=== PATIENT | female | born 1955 ===

== ENCOUNTER 2016-09-07 21:55 | Emergency (ER) | payer OTHER ==
[2016-09-07 22:12] VITALS: BMI 28.3
[2016-09-07 22:14] VITALS: BP 130/76; PULSE 79; RESP 16; TEMP 98.3; O2SAT 98
[2016-09-07] MEDS ORDERED: TDAP Vaccine 0.5 mL Syr IM ONE (22:36)
--- NOTE | 2016-09-07 22:40 | ED PDOC ---
Arrival/HPI - General Chief Complaint: Abnormal Skin Integrity Time Seen by Provider: 09/07/16 22:35 Historian: Patient - History of Present Illness Narrative History of Present Illness (Text): 09/07/16 22:37 60-year-old female presents today with a puncture wound to the right foot yesterday. Patient states she was walking with sneakers on. Patient unsure of her left tetanus shot. Denies fevers or chills. Complaining of pain to the puncture site. Patient denies a history of diabetes. Patient states she cleaned the wound with peroxide. He denies swelling or redness. States she has pain with ambulation. No other complaints Time/Duration: Other (yesterday) Symptom Onset: Sudden Symptom Course: Unchanged Quality: Aching Severity Level: 2 Past Medical History - Provider Review Nursing Documentation Reviewed: Yes - Travel History Have you recently traveled outside [place] w/in the past 3 mons?: No - Infectious Disease Hx of Infectious Diseases: None - Tetanus Immunization Tetanus Immunization: Unknown - Psychiatric Hx Substance Use: No - Surgical History Hx Section: Yes (x2) Hx Cholecystectomy: Yes - Anesthesia Hx Anesthesia: Yes Hx Anesthesia Reactions: No Hx Malignant Hyperthermia: No Family/Social History - Physician Review Nursing Documentation Reviewed: Yes Family/Social History: Unknown Family HX Smoking Status: Never Smoked Hx Alcohol Use: No Hx Substance Use: No Allergies/Home Meds Allergies/Adverse Reactions: Allergies No Known Allergies Allergy (Verified 09/07/16 22:12) Review of Systems - Review of Systems Constitutional: absent: Fatigue, Fevers Respiratory: absent: SOB, Cough Cardiovascular: absent: Chest Pain, Palpitations Gastrointestinal: absent: Abdominal Pain, Nausea, Vomiting Musculoskeletal: Arthralgias (ffoot pain) Skin: Other (puncture wound) Physical Exam Vital Signs Reviewed: Yes Vital Signs Temp Pulse Resp BP Pulse Ox 09/07/16 22:14 98.3 F 79 16 130/76 98 Temperature: Afebrile Blood Pressure: Normal Pulse: Regular Respiratory Rate: Normal Appearance: Positive for: Well-Appearing, Non-Toxic, Comfortable Pain Distress: None Mental Status: Positive for: Alert and Oriented X 3 - Systems Exam Head: Present: Atraumatic Mouth: Present: Moist Mucous Membranes Neck: Present: Normal Range of Motion Respiratory/Chest: Present: Clear to Auscultation, Good Air Exchange. No: Respiratory Distress, Accessory Muscle Use Cardiovascular: Present: Regular Rate and Rhythm, Normal S1, S2. No: Murmurs Lower Extremity: Present: NORMAL PULSES, Normal ROM, Tenderness (right foot; there is a puncture wound noted to the plantar aspect of the right foot along the distal aspect approx over the 2nd metatarsal; no edema no erythema; no ecchymosis; no fb noted; + ttp at puncture site. ), Neurovascularly Intact, Capillary Refill < 2 s. No: CALF TENDERNESS, Swelling, Erythema, Deformity Neurological: Present: GCS=15, Speech Normal Skin: Present: Warm, Dry, Normal Color Psychiatric: Present: Alert, Oriented x 3 Medical Decision Making ED Course and Treatment: 09/07/16 23:34 60-year-old female with a puncture wound to the right foot from nail yesterday. No signs of infection at present time. Tetanus updated. Motrin by mouth Cipro by mouth Wound cleaned and irrigated well with high-pressure normal saline. Bacitracin and dressing applied. X-rays of the right foot: No foreign body no fracture. I advised the patient follow up with primary care physician/surfacing technician within the next 2 days. Advised immediate return if signs of infection develop: High fevers, increasing pain, increasing redness, increasing swelling, purulent discharge. I discussed Cipro in depth with the patient and advised the patient to avoid strenuous activity due to the possibility of tendon rupture on this medication. I discussed with the patient the importance of Cipro due to the puncture wound through the rubber sole of her sneaker. Patient verbalizes understanding of discharge instructions and need for immediate followup. all aspects of this case were discussed the attending of record. Impression: Puncture wound, foot motrin every 6 hours as needed for pain cipro; 1 tablet twice daily x 7 days keep wound clean and dry apply bacitracin twice daily follow up with the primary care physician within the next 2 days. return immediately if signs of infection develop; high fevers, increasing pain, redness, swelling, or if any other concerning symptoms develop. Disposition/Present on Arrival - Present on Arrival Any Indicators Present on Arrival: No History of DVT/PE: No History of Uncontrolled Diabetes: No Urinary Catheter: No History of Decub. Ulcer: No History Surgical Site Infection Following: None - Disposition Have Diagnosis and Disposition been Completed?: Yes Diagnosis: Puncture wound Disposition: HOME/ ROUTINE Disposition Time: 23:28 Patient Plan: Discharge Condition: GOOD Discharge Instructions (ExitCare): Puncture Wound (ED) Additional Instructions: motrin every 6 hours as needed for pain cipro; 1 tablet twice daily x 7 days keep wound clean and dry apply bacitracin twice daily follow up with the primary care physician within the next 2 days. return immediately if signs of infection develop; high fevers, increasing pain, redness, swelling, or if any other concerning symptoms develop. Prescriptions: Ciprofloxacin [Cipro] 500 mg PO BID #14 tab Ibuprofen [Motrin] 600 mg PO Q6H PRN #20 tab PRN Reason: pain/fever reduction Referrals: Ck Woodson DPM [Staff Provider] - Follow up with primary Carmina Brink DPM [Staff Provider] - Follow up with primary [facility] [Outside] - Follow up with primary Doug Duke MD [Staff Provider] - Follow up with primary
--- NOTE | 2016-09-08 07:14 | RAD ---
PROCEDURE: Right Foot Radiographs. HISTORY: puncture wound plantar aspect approx 2nd metatarsa COMPARISON: None. FINDINGS: BONES: Normal. No fracture. 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 Here no radiopaque foreign body OTHER FINDINGS: None. IMPRESSION: Soft tissue changes consistent with the history. No radiopaque foreign body. No osseous interruption
== END 2016-09-07 23:59 | disposition home or self-care (01) ==
LOC: ED 21:55
DX: S91.331A Puncture wound without foreign body, right foot, initial encounter (principal); X58.XXXA Exposure to other specified factors, initial encounter; Z23 Encounter for immunization